=== PATIENT | female | born 1940 | race African-American/Black ===

== ENCOUNTER 2023-06-29 14:29 | Emergency (ER) | payer OTHER, BC ==
[2023-06-29 14:46] VITALS: BP 148/62; PULSE 80; RESP 18; TEMP 98; BMI 31.1
== END 2023-06-29 17:16 | disposition home or self-care (01) ==
LOC: JERFT 14:29 → JER 14:29 → JERFT 17:16
DX: J06.9 Acute upper respiratory infection, unspecified (principal); R09.82 Postnasal drip; Z20.822 Contact with and (suspected) exposure to COVID-19
CPT/HCPCS: 0241U-QW; 99283-25

== ENCOUNTER 2025-04-20 11:37 | Observation (INO) | payer OTHER, BC ==
[2025-04-20 12:49] LABS: MCHC 31.3 g/dl (32.2-35.5); MEAN CELL VOLUME 92.4 fl (79.4-94.8); MEAN PLT VOLUME 9.0 fl (9.4-12.3); RDW 15.2 % (12.5-17.0)
[2025-04-20 13:08] LABS: CO2 28.0 mmol/L (21-32); GLUCOSE,RANDOM 95.0 mg/dL (74-106)
[2025-04-20 13:11] LABS: CREATININE 1.1 mg/dL (0.55-1.3); SGOT/AST 32.0 U/L (15-37); SGPT/ALT 44.0 U/L (13-61)
[2025-04-20 13:13] LABS: TOT PROT 6.9 g/dl (6.4-8.2)
[2025-04-20 13:14] LABS: ALK PHOS 90.0 U/L (45-117)
[2025-04-20 14:17] LABS: HIV INTERPRETATION NEGATIVE (NEGATIVE)
[2025-04-20 14:19] LABS: HCV DIAGNOSTIC IN-HOUSE W/RFLX NON-REACTIVE (NONREACTIVE)
[2025-04-20] MEDS: LACTATED RINGERS SOLUTION 1000 ML INFUS.BAG IV ONE (16:18)
[2025-04-20 17:10] LABS: EPI CELLS 2 /uL (0-25.1); HYALINE CASTS 0 /uL (0-3.1); URINE APPEARANCE CLEAR; URINE BACTERIA 10 /uL (0-1359); URINE BILIRUBIN NEGATIVE (NEGATIVE); URINE COLOR YELLOW; URINE GLUCOSE (UA) NEGATIVE (NEGATIVE); URINE KETONE NEGATIVE (NEGATIVE); URINE LEUK ESTERASE TRACE (NEGATIVE); URINE NITRITE NEGATIVE (NEGATIVE); URINE PROTEIN NEGATIVE (NEGATIVE); URINE RBC 16 /uL (0-23.9); URINE UROBILINOGEN 0.2 mg/dL (0.2-1.0)
[2025-04-20] MEDS: SODIUM CHLORIDE 1,000 ML IV SCH (19:58)
[2025-04-20] MEDS: ATORVASTATIN CA 20 MG TABLET (FP) PO SCH (22:18)
[2025-04-20 23:09] VITALS: BMI 35.2
[2025-04-21] MEDS: LEVOTHYROXINE NA 75 MCG TABLET (FP) PO SCH (06:33)
[2025-04-21] MEDS: ENOXAPARIN NA (PORCINE) 40 MG/0.4 ML DISP.SYRIN SQ SCH (09:35)
[2025-04-21] MEDS: ASPIRIN 81 MG CHEWABLE TABLETS PO SCH (09:35)
[2025-04-21] MEDS: LISINOPRIL 20 MG TABLET PO SCH (09:35)
[2025-04-21 10:30] LABS: ABSOLUTE IMMATURE GRANULOCYTES 0.01 x10^3/uL (0.0-0.031); BASOPHILS # 0.02 x10^3/uL (0.01-0.08); EOSINOPHIL % 0.0 % (0.7-5.8); EOSINOPHILS # 0.00 x10^3/uL (0.04-0.36); MCHC 31.3 g/dl (32.2-35.5); MEAN CELL VOLUME 91.6 fl (79.4-94.8); MEAN PLT VOLUME 8.9 fl (9.4-12.3); MONOCYTE # 0.38 x10^3/uL (0.24-0.86); MONOCYTE % 7.9 % (4.7-12.5); RDW 15.1 % (12.5-17.0)
[2025-04-21 11:06] LABS: CO2 25.0 mmol/L (21-32); GLUCOSE,RANDOM 108.0 mg/dL (74-106)
[2025-04-21 11:09] LABS: CREATININE 0.9 mg/dL (0.55-1.3); SGOT/AST 33.0 U/L (15-37); SGPT/ALT 46.0 U/L (13-61)
[2025-04-21 11:10] LABS: TOT PROT 7.2 g/dl (6.4-8.2)
[2025-04-21 11:12] LABS: ALK PHOS 100.0 U/L (45-117)
[2025-04-21 21:33] VITALS: RESP 16
[2025-04-21] MEDS: guaiFENesin/D-METHORPHAN HB 10 ML UNIT-DOSE CUPS PO ONE (22:11)
[2025-04-22 08:40] VITALS: BP 147/74; PULSE 75; TEMP 75
== END 2025-04-22 10:56 | disposition home or self-care (01) ==
LOC: JER 11:37 → JERBED 15:49 → J4S 18:56
PROVIDERS: ADMIT Internal Medicine; ATTEND Internal Medicine
DX: R55 Syncope and collapse (principal); E86.0 Dehydration; I10 Essential (primary) hypertension; E78.5 Hyperlipidemia, unspecified; I25.2 Old myocardial infarction; E03.9 Hypothyroidism, unspecified; I25.10 Atherosclerotic heart disease of native coronary artery without angina pectoris; I08.3 Combined rheumatic disorders of mitral, aortic and tricuspid valves; J45.909 Unspecified asthma, uncomplicated; Z95.5 Presence of coronary angioplasty implant and graft; Z87.891 Personal history of nicotine dependence; Z79.82 Long term (current) use of aspirin
CPT/HCPCS: 36415; 70450-TC; 71045-TC-FY; 72125-TC; 72131-TC; 72170-TC-FY; 80053; 81003; 82550; 83735; 84100; 84484; 85025; 85027; 86803; 87389; 87637-QW; 93005; 93010; 93306-TC; 96360; 96361; 97116-GP; 97161-GP; 99285-25; G0378